=== PATIENT | female | born 1965 | race Caucasian/White ===

== ENCOUNTER → 2020-11-05 | Day surgery (SDC) | payer OTHER ==
[~2020-11-05] MED LIST: ATOR40TA PO; BIOT25006 PO; CYAN25003 SL; IV RINGERS,LACTATED 1000ML 1,000 ML IV SCH; LAMO200T3 PO; MAGN250T2 PO; VENL150C PO
--- NOTE | 2020-11-05 15:03 | PDOC1 ---
History and Physical Date of Admission Date of Admission DATE: 11/05/20 TIME: 15:01 History of Present Illness History of Present Illness GERD, dysphagia Past Medical History Cardiovascular: Hyperlipidemia GI: GERD Psych: Depression Current Medications Current Medications Current Medications Ringer's Solution 1,000 ml @ 50 mls/hr Q20H IV ; Start 11/05/20 at 07:15; Stop 11/05/20 at 19:14 Active Scripts Active Reported Vitamin B-12 (Cyanocobalamin (Vitamin B-12)) 2,500 Mcg Tab.subl 2,500 Mcg SL DAILY Lipitor (Atorvastatin Calcium) 40 Mg Tablet 40 Mg PO HS Biotin 2,500 Mcg Capsule 2,500 Mcg PO DAILY Magnesium 250 Mg Tablet 2,000 Mg PO DAILY Lamictal (Lamotrigine) 200 Mg Tablet 300 Mg PO DAILY Effexor Xr (Venlafaxine Hcl) 150 Mg Cap.er.24h 1 Cap PO DAILY Allergies Allergies: Coded Allergies: Sulfa (Sulfonamide Antibiotics) (Verified Allergy, Intermediate, 11/05/20) latex (Verified Allergy, Intermediate, 11/05/20) Physical Exam General: Alert, Oriented X3 Lungs: Clear to auscultation Heart: S1S2 Abdomen: Normal bowel sounds, Soft Psych/Mental Status: Mental status NL VTE Prophylaxis Ordered VTE Prophylaxis Devices: No VTE Pharmacological Prophylaxi: No (outpt- not needed) Assessment/Plan Assessment/Plan GERD Dysphagia EGD Justifications for Admission Other Justification LEONARDO AGUILAR MD Nov 05, 2020 15:03
[2020-11-05 15:40] VITALS: BP 109/63
--- NOTE | 2020-11-10 18:06 | PATHOLOGY ---
[facility] Accession Number: [id number] . 01 Material submitted: . PART A: stomach - ANTRUM BIOPSY PART B: esophagus - DISTAL ESOPHAGUS BIOPSY. Modifiers: distal . 01 Clinical history: . REASON FOR VISIT: GERD,DYSPHAGIA PROCEDURE: EGD . 02 Diagnosis: A. Gastric biopsies, antrum: - Superficial congestion, mild edema, and focal slight chronic inflammation. . B. Esophageal biopsies, distal esophagus: - Reflux esophagitis. (JPM:alisia; 11/10/2020) [facility] 11/10/2020 1343 Local . 02 Comment: Sections of the gastric antral biopsy show superficial congestion, mild edema, and focal slight chronic inflammation. A properly controlled immunoperoxidase stain for Helicobacter is negative for Helicobacter organisms. . Sections of the distal esophageal biopsy reveal segments of hyperplastic squamous esophageal mucosa with focal contiguous and separate segments of gastric mucosa showing chronic inflammation. The findings are consistent with reflux esophagitis. There is no evidence of Sauceda's change, dysplasia, or malignancy. (JPM:alisia; 11/10/2020) . . Special stain performed: Immunoperoxidase stain for Helicobacter on A1. . 02 Electronically signed: . Gerald Busby MD, Pathologist NPI- [id number] . 01 Gross description: . A. Received in formalin labeled "McEnery, Brenda and antral biopsy gastritis rule out H. pylori". Received are 2 henry-brown soft tissue fragments ranging from 0.2-0.3 cm. Specimen is entirely submitted in cassette A1. . B. Received in formalin labeled "McEnery, Brenda and distal esophagus biopsy". Received are 3 henry-brown soft tissue fragments ranging from 0.3-0.4 cm. Specimen is entirely submitted in cassette B1.(BLJ; 11/09/2020) [facility] 11/10/2020 1338 Local . 02 Pathologist provided ICD-10: K29.50, K21.00 . 02 CPT . 407922, 311529, [id number] Specimen Comment: A courtesy copy of this report has been sent to [phone] Specimen Comment: Report sent to Performed at: 01 [facility] [address] [place] [address] [address], [place] [id number] MD Ry Corrigan MD Phone: [phone] Performed at: 02 [facility] [address] [place], [place] [id number] MD Gerald Busby MD Phone: [phone]
== END | disposition home or self-care (01) ==
LOC: ENDOS 14:25
PROVIDERS: ATTEND Internal Medicine Gastroenterology
DX: K21.00 Gastro-esophageal reflux disease with esophagitis, without bleeding (principal); R13.10 Dysphagia, unspecified; K29.50 Unspecified chronic gastritis without bleeding; K44.9 Diaphragmatic hernia without obstruction or gangrene; K22.4 Dyskinesia of esophagus; K31.89 Other diseases of stomach and duodenum; N18.9 Chronic kidney disease, unspecified; E78.5 Hyperlipidemia, unspecified; F32.9 Major depressive disorder, single episode, unspecified; F41.9 Anxiety disorder, unspecified; Z87.891 Personal history of nicotine dependence; Z88.2 Allergy status to sulfonamides; Z91.040 Latex allergy status; Z79.899 Other long term (current) drug therapy; Z98.890 Other specified postprocedural states; Z20.822 Contact with and (suspected) exposure to COVID-19
CPT/HCPCS: 43239; 43450; 87426